=== PATIENT | male | born 1980 | race Two or more races ===

== ENCOUNTER 2024-02-29 07:29 | Emergency (ER) | payer MEDICAID ==
[~2024-02-29] VITALS: Ht 162.6 cm; Wt 86.0 kg
[2024-02-29 07:42] VITALS: BP 144/83; PULSE 68; RESP 18; TEMP 98.2
[2024-02-29] MEDS: OxyCODONE HCL/ACETAMINOPHEN 5-325 MG TABLET PO ONE (09:08)
[2024-02-29] MEDS: IBUPROFEN 600 MG TABLET PO ONE (09:08)
[2024-02-29] MEDS ORDERED: PERCT PO (09:46)
[2024-02-29] MEDS ORDERED: IBUP-1492 PO (09:46)
== END 2024-02-29 10:16 | disposition home or self-care (01) ==
LOC: EMS 07:29
DX: S43.121A Dislocation of right acromioclavicular joint, 100%-200% displacement, initial encounter (principal); S13.4XXA Sprain of ligaments of cervical spine, initial encounter; V89.2XXA Person injured in unspecified motor-vehicle accident, traffic, initial encounter; Y93.89 Activity, other specified; Y92.89 Other specified places as the place of occurrence of the external cause; Y99.8 Other external cause status
CPT/HCPCS: 72125; 99284; 73030-TC; Z7502; Z7610